=== PATIENT | female | born 1960 | race Caucasian/White ===

== ENCOUNTER 2017-02-23 14:02 | Emergency (ER) | payer SELFPAY ==
[~2017-02-23] VITALS: Ht 165.1 cm; Wt 62.9 kg
[2017-02-23 14:11] VITALS: BP 165/107
[2017-02-23] MEDS ORDERED: IBUPROFEN 200 MG TABLET ONE (15:06)
[2017-02-23] MEDS ORDERED: IBUPROFEN 200 MG TABLET PO ONE (15:30)
== END 2017-02-23 15:12 | disposition home or self-care (01) ==
LOC: ED 15:10
DX: B35.3 Tinea pedis (principal)
CPT/HCPCS: 99282